=== PATIENT | female | born 1965 | race Caucasian/White ===

== ENCOUNTER 2022-09-17 10:16 | Outpatient (REF) | payer OTHER, SELFPAY ==
--- NOTE | 2022-09-17 10:22 | ECG_ITS ---
Test Reason : z82.49 Blood Pressure : / mmHG Vent. Rate : 063 BPM Atrial Rate : 063 BPM P-R Int : 156 ms QRS Dur : 088 ms QT Int : 440 ms P-R-T Axes : 064 006 050 degrees QTc Int : 450 ms Normal sinus rhythm RSR' or QR pattern in V1 suggests right ventricular conduction delay Nonspecific T wave abnormality Anterior leads Abnormal ECG No previous ECGs available Referred By: Gabriella Kaba Electronically Signed By:GI HENRIQUEZ MD
[2022-09-17 12:09] LABS: Alanine Aminotransferase 13 U/L (0-31); Albumin Level 4.4 g/dL (3.5-5.0); Alkaline Phosphatase 87 U/L (39-117); Anion Gap 17 (12-20); Aspartate Amino Transferase 17 U/L (5-31); Bilirubin Total 0.8 mg/dL (0.0-1.0); Blood Urea Nitrogen 15 mg/dL (9-16); Calcium 9.8 mg/dL (8.4-10.2); Carbon Dioxide 27 mmol/L (22-29); Chloride 103 mmol/L (96-108); Cholesterol 214 mg/dL; Estimated Glomerular Filt Rate > 60; Glucose Fasting 108 mg/dL (60-99); HDL Cholesterol 87 mg/dL; LDL Cholesterol Calculated 106 mg/dl; Potassium 4.3 mmol/L (3.3-5.1); Sodium 143 mmol/L (135-145); Total Protein 7.6 g/dL (6.5-8.0); Triglycerides 105 mg/dL
== END 2022-09-17 10:17 | disposition home or self-care (01) ==
LOC: HO.LAB 10:16
PROVIDERS: PCP Internal Medicine; Visit Provider Internal Medicine
DX: R94.31 Abnormal electrocardiogram [ECG] [EKG] (principal); Z82.49 Family history of ischemic heart disease and other diseases of the circulatory system
CPT/HCPCS: 36415; 80053; 80061; 93005

== ENCOUNTER 2022-10-03 15:00 | Outpatient (REF) | payer OTHER, SELFPAY ==
--- NOTE | ~2022-10-03 | MM_ITS ---
EXAMINATION: MM SCREENING DIGITAL BREAST TOMOSYNTHESIS, BILATERAL CLINICAL INFORMATION: Screening. Asymptomatic. Family history breast cancer, mother. Aspiration subareolar left breast abscess 07/01/2020. COMPARISON: Outside mammography 06/20/2020, 10/30/2019 ([facility]); outside left breast ultrasound 06/20/2020 and left breast ultrasound-guided aspiration 07/01/2020 ([facility]). TECHNIQUE: Digital breast tomosynthesis is performed in both the craniocaudal and mediolateral oblique views along with computer-aided detection (CAD). Synthesized 2D images are generated from the tomosynthesis. FINDINGS: The breasts are heterogeneously dense, which may obscure small masses (ACR BI-RADS breast composition Category c). There are no significant masses, abnormal calcifications, or other abnormalities. There is no architectural abnormality or developing density. The oval mass/abscess anterior left breast noted on outside imaging is no longer demonstrated. The skin contours are smooth. No skin thickening or coarsening of the Renard's ligaments. The axilla are unremarkable. MM/MM tomosynthesis screening BI IMPRESSION: No mammographic evidence of malignancy. ASSESSMENT: BI-RADS 2: Benign RECOMMENDATION: Routine annual mammography screening. This patient's information was entered into a reminder system with a target due date for their next mammogram.
== END 2022-10-03 15:01 | disposition home or self-care (01) ==
LOC: HO.MAMMO 15:00
PROVIDERS: PCP Internal Medicine; Visit Provider Internal Medicine
DX: Z12.31 Encounter for screening mammogram for malignant neoplasm of breast (principal)
CPT/HCPCS: 77063; 77067

== ENCOUNTER 2022-12-19 10:31 | Outpatient (REF) | payer OTHER, SELFPAY ==
[2022-12-22 03:18] LABS: HPV mRNA E6/E7 rflx Not Detected (Not Detected)
== END 2022-12-19 10:32 | disposition home or self-care (01) ==
LOC: HO.LNP 10:31
PROVIDERS: PCP Internal Medicine; Visit Provider Advanced Practice Midwife
DX: Z01.419 Encounter for gynecological examination (general) (routine) without abnormal findings (principal); B00.9 Herpesviral infection, unspecified; Z80.3 Family history of malignant neoplasm of breast
CPT/HCPCS: 87624; 88142

== ENCOUNTER 2023-04-26 11:20 | Outpatient (REF) | payer OTHER, SELFPAY ==
[2023-05-01 07:34] LABS: Antibody to SS-A Antigen <1.0 NEG AI (<1.0 NEG); Antibody to SS-B Antigen <1.0 NEG AI (<1.0 NEG)
== END 2023-04-26 11:21 | disposition home or self-care (01) ==
LOC: HO.LAB 11:20
PROVIDERS: PCP Internal Medicine; Visit Provider Internal Medicine
DX: R68.2 Dry mouth, unspecified (principal); R07.2 Precordial pain
CPT/HCPCS: 36415; 86235

== ENCOUNTER 2023-10-23 11:03 | Outpatient (REF) | payer OTHER, SELFPAY ==
--- NOTE | ~2023-10-23 | XR_ITS ---
EXAMINATION: XR FINGER, RIGHT CLINICAL INFORMATION: Pain COMPARISON: None available. TECHNIQUE: Three views of the right small finger. FINDINGS: Mild to moderate multi joint arthritic changes greatest at the fifth distal interphalangeal joint. Punctate 1 mm ossific focus along the dorsal margin of the fifth distal interphalangeal joints which may reflect a periarticular osteophyte though ossific fracture fragment not excluded. Correlation with point tenderness. Mild soft tissue prominence along the fifth distal interphalangeal joint. XR/XR finger RT min 2V IMPRESSION: 1. Mild to moderate multi joint arthritic changes greatest at the fifth distal interphalangeal joint. 2. Punctate 1 mm ossific focus along the dorsal margin of the fifth distal interphalangeal joint which may reflect a periarticular osteophyte though ossific fracture fragment not excluded. Correlation with point tenderness. 3. Mild soft tissue prominence along the fifth distal interphalangeal joint.
== END 2023-10-23 11:04 | disposition home or self-care (01) ==
LOC: HO.XRAY 11:03
PROVIDERS: PCP Internal Medicine; Visit Provider Internal Medicine
DX: M79.644 Pain in right finger(s) (principal)
CPT/HCPCS: 73140

== ENCOUNTER 2024-01-23 10:53 | Outpatient (REF) | payer OTHER, SELFPAY | END 2024-01-23 10:54 | disposition home or self-care (01) | LOC: HO.MAMMO 10:53 | PROVIDERS: PCP Internal Medicine; Visit Provider Internal Medicine | DX: Z12.31 Encounter for screening mammogram for malignant neoplasm of breast (principal) | CPT/HCPCS: 77063; 77067 ==

== ENCOUNTER → 2024-01-23 11:15 | Outpatient (BNV) | payer OTHER, SELFPAY | PROVIDERS: PCP Internal Medicine; Visit Provider Radiology Diagnostic Radiology | DX: Z12.31 Encounter for screening mammogram for malignant neoplasm of breast (principal) | CPT/HCPCS: 77063; 77067 ==

== ENCOUNTER 2024-01-23 12:36 | Outpatient (AMB) | payer OTHER, SELFPAY ==
[2024-01-23 12:39] VITALS: BP 112/70; BMI 24.5
--- NOTE | 2024-01-23 12:39 | MHC.PC.OV ---
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 Accompanied by: Self / Same As Patient Allergies No Known Allergies Allergy (Verified 01/23/24 12:45) Medication List - Last Reconciled 01/23/24 by Gabriella Kaba MD acyclovir 800 mg PO DAILY 90 days Tobacco use date assessed: 01/23/24 Dental Screening Dental Screen Date: 01/23/24 Did you have a dental visit in the last 12 months?: Yes Did you have a dental problem in the last 6 months where you did not have access to dental care?: No Was dental information given to patient?: Patient has dentist HPI HPI Comments History of Present Illness Details This is a 58-year-old female that comes for her physical exam. Mammogram done today. Cologuard done 2021. Pap smear done 2022. Complains of onychomycosis. Also has some bilateral hearing loss and would like a hearing test. PFSH Surgical History Hx of tubal ligation Family History Mother Hypercholesteremia History of breast cancer Father Dementia Brother Stroke Diabetes mellitus Social History Housing: Apartment Alcohol intake: current Alcohol intake frequency: a few times a week Alcohol type: beer and hard liquor Patient Tobacco Use Status: Former Tobacco user Tobacco use type: Cigarette e-Cigarette/Vaping Use: Never Used Second Hand Smoke Exposure: No service: No Current occupational status: employed Current occupational exposures/hazards: No Sexual orientation: Straight/Heterosexual Gender identity: Female Cognitive needs: No Hearing needs: No Vision needs: Yes Questionnaire PHQ-9 Over the last 2 weeks, how often have you been bothered by any of the following problems? 1. Little interest or pleasure in doing things: not at all 2. Feeling down, depressed, or hopeless: not at all 3. Trouble falling or staying asleep, or sleeping too much: not at all 4. Feeling tired or having little energy: not at all 5. Poor appetite or overeating: not at all 6. Feeling bad about yourself - or that you are a failure or have let yourself or your family down: not at all 7. Trouble concentrating on things, such as reading the newspaper or watching television: not at all 8. Moving or speaking so slowly that other people could have noticed. Or the opposite - being so fidgety or restless that you have been moving around a lot more than usual: not at all 9. Thoughts that you would be better off or of hurting yourself in some way: not at all Total score: 0 Depression Screening Interpretation: Negative Depression Screening Done: Yes 95504 - PHQ-9 Billing: Yes Source: Developed by Drs. Carlos Flaherty, Mckayla Greenwood, Chandra Yanez and colleagues, with an educational nicole from [employer]. Thrive Questionnaire Date Thrive assessed: 01/23/24 I am a: Patient What is your living situation today?: I have a steady place to live Within the past 12 months, did the food you bought not last and you didn't have the money to get more?: Never true Within the past 12 months, did you worry whether your food would run out before you got money to buy more?: Never true Do you have trouble paying for medicines?: No Do you have trouble getting transportation to medical appointments?: No Do you have trouble paying your heating and electricity bill?: No Do you have trouble taking care of your child, family member or friend?: No Do you have trouble with day-to-day activities such as bathing, preparing meals, shopping, managing finances, etc.?: No Are you currently unemployed and looking for a job?: No Are you interested in more education?: No Please select the resources that you would like help with: None Currently or been in a relationship where the following occur: no concerns reported THRIVE Score: 0 AUDIT C Alcohol Use Questionnaire (AUDIT-C) 1. How often do you have a drink containing alcohol?: 2-3 times a week 2. How many drinks containing alcohol do you have on a typical day when you are drinking?: 1 or 2 3. How often do you have six or more drinks on one occasion?: Never Total Score: 3 Score Reviewed/Action Taken: Yes ARUNA-7 AMB Questionnaire ARUAN-7 Date ARUNA - 7 assessed: 01/23/24 Feeling nervous, anxious, or on edge: 1 = Several days Not being able to stop or control worryin = Not at all Worrying too much about different things: 0 = Not at all Trouble relaxin = Not at all Being so restless that it is hard to sit still: 0 = Not at all Becoming easily annoyed or irritable: 0 = Not at all Feeling afraid as if something awful might happen: 0 = Not at all Total ARUNA-7 score (0-4 normal; 5-9 mild; 10-14 moderate; 15-21 severe): 1 Source: Developed by Drs. Carlos Flaherty, Mckayla Greenwood, Chandra Yanez and colleagues, with an educational nicole from [employer]. ARUNA-7 Assessment Billing ARUNA-7 Assessment Tool: ARUNA-7 Assessment 58746 Review of Systems Const All systems reviewed & are unremarkable except as noted in HPI and below Eyes Reports no additional complaints, Denies change in vision and Denies other visual disturbances Card Denies chest pain at rest, Denies chest pain with activity, Denies edema, Denies irregular heart rhythm, Denies claudication, Denies dyspnea, Denies dyspnea on exertion, Denies orthopnea, Denies paroxysmal nocturnal dyspnea and Denies slow heart rate Resp Denies cough, Denies dyspnea and Denies dyspnea on exertion GI Denies abdominal pain, Denies change in bowel habits, Denies excessive flatus, Denies nausea and Denies vomiting Denies urinary incontinence, Denies urinary hesitancy and Denies urinary urgency Musc Denies abnormal gait, Denies atrophy, Denies deformity and Denies limited range of motion Skin/Breast Denies bleeding lesions, Denies changing lesions and Denies rash Neuro Denies abnormal gait, Denies behavioral changes, Denies confusion and Denies lack of coordination Psych Denies behavioral changes and Denies confusion Physical exam (Primary Care) Vital Signs: Last Vital Signs BP 112/70 01/23/24 12:39 BMI result Body Mass Index 24.5 Tobacco/Smoking Status: Tobacco use Status Tobacco use date assessed 01/23/24 01/23/24 12:44 Patient Tobacco Use Status Former Tobacco user 01/23/24 12:44 Tobacco use type Cigarette 01/23/24 12:44 e-Cigarette/Vaping Use Never Used 01/23/24 12:44 PHQ-9: PHQ-9 Score PHQ-9: Total score 0 01/23/24 12:49 Depression Screening Interpretation: Negative Thrive Assessment: Date of Thrive Assessment Date Thrive assessed 01/23/24 01/23/24 12:44 Currently or been in a relationship where the following occur: no concerns reported Const General: No confusion Orientation/consciousness: patient oriented x3 and No confusion HENMT Head: Yes normal to inspection, Yes normocephalic and Yes atraumatic Ears: external ears normal Eyes General: appearance normal, both eyes and all related structures Eyelids: Yes eyelids normal Conjunctivae: conjunctivae normal Neck Neck: Yes normal visual inspection and Yes supple Resp Effort & Inspection: normal respiratory effort Auscultation: clear to auscultation bilaterally Cardio Jugular venous distension: no JVD Rate: regular rate Rhythm: regular rhythm Heart sounds: S1 normal heart sound present and S2 normal heart sound present GI Inspection: Yes normal to inspection Palpation (GI): Soft to palpation and nontender Auscultation: normal bowel sounds Skin General skin exam: no rashes or lesions noted Neuro General: patient oriented x3, no focal motor deficits and No confusion Extrem General: Yes full ROM Psych Appearance: grossly normal Assessment and Plan Assessment & Plan (1) Physical exam: Code(s): Z00.00 - Encounter for general adult medical examination without abnormal findings Plan: Repeat in a year. Orders: Orders Lipid Panel Today E78.5 - Hyperlipidemia, unspecified Comprehensive [place]. Panel Fast Today Z00.00 - Encounter for general adult medical examination without abnormal findings Referrals Speech and Hearing Referral H91.90 - Unspecified hearing loss, unspecified ear Coding Level of Care Code Est Pt Prev Care 40-64y(00105) Diagnoses Physical exam Z00.00 Additional Codes ARUNA-7 Assessment Billing - ARUNA-7 Assessment Tool: ARUNA-7 Assessment [id number] ([id number]) Time Spent (min) 31
== END 2024-01-23 12:58 | disposition home or self-care (01) ==
PROVIDERS: Visit Provider Internal Medicine
DX: Z00.00 Encounter for general adult medical examination without abnormal findings (principal)
CPT/HCPCS: 99396

== ENCOUNTER 2024-02-14 13:39 | Outpatient (REF) | payer OTHER, SELFPAY ==
[2024-02-14 15:02] LABS: Alanine Aminotransferase 16 U/L (0-31); Alkaline Phosphatase 83 U/L (39-117); Anion Gap 12 (12-20); Aspartate Amino Transferase 19 U/L (5-31); Bilirubin Total 0.4 mg/dL (0.0-1.0); Blood Urea Nitrogen 15 mg/dL (9-16); Calcium 9.5 mg/dL (8.4-10.2); Carbon Dioxide 26 mmol/L (22-29); Chloride 107 mmol/L (96-108); Cholesterol 194 mg/dL (<200); Estimated Glomerular Filt Rate > 60; Glucose Fasting 115 mg/dL (60-99); HDL Cholesterol 82 mg/dL (>40); LDL Cholesterol Calculated 95 mg/dL (<100); Potassium 3.9 mmol/L (3.3-5.1); Sodium 141 mmol/L (135-145); Total Protein 7.1 g/dL (6.5-8.0); Triglycerides 85 mg/dL (<150)
== END 2024-02-14 13:40 | disposition home or self-care (01) ==
LOC: HO.LAB 13:39
PROVIDERS: PCP Internal Medicine; Visit Provider Internal Medicine
DX: Z00.00 Encounter for general adult medical examination without abnormal findings (principal); E78.5 Hyperlipidemia, unspecified
CPT/HCPCS: 36415; 80053; 80061

== ENCOUNTER 2024-05-26 13:40 | Outpatient (AMB) | payer OTHER, SELFPAY ==
[2024-05-26 13:51] VITALS: BP 104/68; BMI 24.6
--- NOTE | 2024-05-26 13:51 | MHC.PC.OV ---
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 She said that it is painful and itchy. She was in a concert in the ground the day that the rash started. Has history of herpes zoster in the past. No fever or night sweats. No other complaint. PFSH Surgical History Hx of tubal ligation Family History Mother Hypercholesteremia History of breast cancer Father Dementia Brother Stroke Diabetes mellitus Social History Housing: Apartment Alcohol intake: current Alcohol intake frequency: a few times a week Alcohol type: beer and hard liquor Patient Tobacco Use Status: Former Tobacco user Tobacco use type: Cigarette e-Cigarette/Vaping Use: Never Used Second Hand Smoke Exposure: No service: No Current occupational status: employed Current occupational exposures/hazards: No Sexual orientation: Straight/Heterosexual Gender identity: Female Cognitive needs: No Hearing needs: No Vision needs: Yes Questionnaire Thrive Questionnaire Date Thrive assessed: 01/23/24 ARUNA-7 AMB Questionnaire ARUNA-7 Date ARUNA - 7 assessed: 01/23/24 Source: Developed by Drs. Carlos Flaherty, Mckayla Greenwood, Chandra Yanez and colleagues, with an educational nicole from [employer]. Review of Systems Skin/Breast Reports pruritus and Reports rash Physical exam (Primary Care) Vital Signs: Last Vital Signs BP 104/68 05/26/24 13:51 BMI result Body Mass Index 24.6 Tobacco/Smoking Status: Tobacco use Status Tobacco use date assessed 01/23/24 05/26/24 13:55 Patient Tobacco Use Status Former Tobacco user 05/26/24 13:55 Tobacco use type Cigarette 05/26/24 13:55 e-Cigarette/Vaping Use Never Used 05/26/24 13:55 Thrive Assessment: Date of Thrive Assessment Date Thrive assessed 01/23/24 05/26/24 13:55 Skin Rashes: rashes noted vesicles right upper arm Assessment and Plan Assessment & Plan (1) Rash: Code(s): R21 - Rash and other nonspecific skin eruption Plan: Start hydrocortisone cream. Medications: New valacyclovir 1,000 mg PO Q8H 21 tabs 0RF 7 days hydrocortisone 1% (Anti-Itch (hydrocortisone)) 1 appl topical TID PRN 28.4 grams 1RF skin irritation 30 days Coding Level of Care Code Est Pt Level 3 (93770) Complex EM visit Add On G2211 Diagnoses Rash R21 Time Spent (min) 18
== END 2024-05-26 14:23 | disposition home or self-care (01) ==
PROVIDERS: PCP Internal Medicine; Visit Provider Internal Medicine
DX: R21 Rash and other nonspecific skin eruption (principal)
CPT/HCPCS: 99213; G2211

== ENCOUNTER 2024-06-30 13:07 | Outpatient (REF) | payer OTHER, SELFPAY ==
[2024-06-30 14:34] LABS: Appearance Urine Clear; Color Urine Yellow; Glucose Urine UA Negative (Negative); Leukocyte Esterase Urine Moderate (2+) (Negative); Nitrite Urine Negative (Negative); PH 5.5 (5.0-9.0); UMIC TRIGGER UACC YES; Urine Blood Negative (Negative); Urine Ketones Negative (Negative); Urine Protein Negative (Neg-Trace)
[2024-06-30 14:36] LABS: Bacteria Urine 1+ (None Seen); Hyaline Casts Urine 0-2 /LPF (0-2); RBC Urine 0-2 /HPF (0-2); UACC Culture Trigger YES; WBC Urine >50 /HPF (0-5)
== END 2024-06-30 13:08 | disposition home or self-care (01) ==
LOC: HO.LAB 13:07
PROVIDERS: PCP Internal Medicine; Visit Provider Internal Medicine
DX: R35.0 Frequency of micturition (principal)
CPT/HCPCS: 81001; 87086; 87088; 87186

== ENCOUNTER → 2024-09-18 10:29 | Outpatient (REF) | payer OTHER, SELFPAY ==
--- NOTE | 2024-09-18 10:32 | ECG_ITS ---
Test Reason : FM HX ISCHEMIA Blood Pressure : / mmHG Vent. Rate : 074 BPM Atrial Rate : 074 BPM P-R Int : 138 ms QRS Dur : 086 ms QT Int : 418 ms P-R-T Axes : 062 008 063 degrees QTc Int : 463 ms Normal sinus rhythm Nonspecific ST and T wave abnormality Abnormal ECG When compared with ECG of 17-SEP-2022 10:18, No significant change was found Referred By: Gabriella Kaba Electronically Signed By:MIRI ESCOBAR
== END ==
LOC: HO.CARD 10:29
PROVIDERS: PCP Internal Medicine; Visit Provider Internal Medicine
DX: Z13.6 Encounter for screening for cardiovascular disorders (principal); Z82.49 Family history of ischemic heart disease and other diseases of the circulatory system
CPT/HCPCS: 93005

== ENCOUNTER → 2024-09-18 10:32 | Outpatient (BNV) | payer OTHER, SELFPAY | PROVIDERS: PCP Internal Medicine; Visit Provider Internal Medicine | DX: R94.31 Abnormal electrocardiogram [ECG] [EKG] (principal) | CPT/HCPCS: 93010 ==

== ENCOUNTER 2024-12-21 11:24 | Outpatient (REF) | payer BC, SELFPAY ==
[2024-12-30 20:39] LABS: Schistosoma IgG Antibody <1.00
== END 2024-12-21 11:25 | disposition home or self-care (01) ==
LOC: HO.LAB 11:24
PROVIDERS: PCP Internal Medicine; Visit Provider Internal Medicine
DX: R21 Rash and other nonspecific skin eruption (principal)
CPT/HCPCS: 36415; 86682; 96127

== ENCOUNTER 2024-12-21 12:54 | Outpatient (AMB) | payer OTHER, SELFPAY ==
--- NOTE | 2024-12-21 12:58 | A.OFFPC_ITS ---
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 Accompanied by: Self / Same As Patient Allergies No Known Allergies Allergy (Verified 12/21/24 13:07) Medication List - Last Reconciled 12/21/24 by Gabriella Kaba MD acyclovir 800 mg PO DAILY Tobacco use date assessed: 12/21/24 Dental Screening Dental Screen Date: 12/21/24 Did you have a dental visit in the last 12 months?: Yes Did you have a dental problem in the last 6 months where you did not have access to dental care?: No Was dental information given to patient?: Patient has dentist HPI HPI Comments History of Present Illness Details The patient is a 59-year-old female presenting with a rash. The rash began presenting with sunburn-like symptoms shortly after arriving in [facility] this month. Initially, both the patient and her experienced symptoms after walking along the ocean and fresh water; however, the patient's symptoms were less severe compared to her , who developed blisters both on toes and beneath feet and has progressed up to the knees. The patient describes her rash as red, slightly scaly, dry, and mildly itchy with bumps but without blisters. The rash appears primarily on her arms and has spread to her legs. Attempts to manage the rash with cool ice gel, under the presumption of sunburn, were ineffective. The rash has traveled over the patient's body instead of subsiding, stirring concern over possible parasitic or environmental causes. No nausea, vomiting, diarrhea, fever, or major systemic involvements are reported aside from a slight cough. [facility] Surgical History Hx of tubal ligation Family History Mother Hypercholesteremia History of breast cancer Father Dementia Brother Stroke Diabetes mellitus Social History Housing: Apartment Alcohol intake: current Alcohol intake frequency: a few times a week Alcohol type: beer and hard liquor Patient Tobacco Use Status: Former Tobacco user Tobacco use type: Cigarette e-Cigarette/Vaping Use: Never Used Second Hand Smoke Exposure: No service: No Current occupational status: employed Current occupational exposures/hazards: No Sexual orientation: Straight/Heterosexual Gender identity: Female Cognitive needs: No Hearing needs: No Vision needs: Yes Questionnaire PHQ-9 Over the last 2 weeks, how often have you been bothered by any of the following problems? 1. Little interest or pleasure in doing things: not at all 2. Feeling down, depressed, or hopeless: not at all 3. Trouble falling or staying asleep, or sleeping too much: not at all 4. Feeling tired or having little energy: not at all 5. Poor appetite or overeating: not at all 6. Feeling bad about yourself - or that you are a failure or have let yourself or your family down: not at all 7. Trouble concentrating on things, such as reading the newspaper or watching television: not at all 8. Moving or speaking so slowly that other people could have noticed. Or the opposite - being so fidgety or restless that you have been moving around a lot more than usual: not at all 9. Thoughts that you would be better off or of hurting yourself in some way: not at all Total score: 0 Depression Screening Interpretation: Negative Depression Screening Done: Yes 53410 - PHQ-9 Billing: Yes Source: Developed by Drs. Carlos Flaherty, Mckayla Greenwood, Chandra Yanez and colleagues, with an educational nicole from [employer]. Thrive Questionnaire Date Thrive assessed: 12/21/24 I am a: Patient What is your living situation today?: I have a steady place to live Within the past 12 months, did the food you bought not last and you didn't have the money to get more?: Never true Within the past 12 months, did you worry whether your food would run out before you got money to buy more?: Never true Do you have trouble paying for medicines?: No Do you have trouble getting transportation to medical appointments?: No Do you have trouble paying your heating and electricity bill?: No Do you have trouble taking care of your child, family member or friend?: No Do you have trouble with day-to-day activities such as bathing, preparing meals, shopping, managing finances, etc.?: No Are you currently unemployed and looking for a job?: No Are you interested in more education?: No Please select the resources that you would like help with: None Currently or been in a relationship where the following occur: No concerns reported THRIVE Score: 0 AUDIT C Alcohol Use Questionnaire (AUDIT-C) 1. How often do you have a drink containing alcohol?: 2-3 times a week 2. How many drinks containing alcohol do you have on a typical day when you are drinking?: 1 or 2 3. How often do you have six or more drinks on one occasion?: Weekly Total Score: 6 ARUNA-7 AMB Questionnaire ARUNA-7 Date ARUNA - 7 assessed: 12/21/24 Feeling nervous, anxious, or on edge: 0 = Not at all Not being able to stop or control worryin = Not at all Worrying too much about different things: 0 = Not at all Trouble relaxin = Not at all Being so restless that it is hard to sit still: 0 = Not at all Becoming easily annoyed or irritable: 0 = Not at all Feeling afraid as if something awful might happen: 0 = Not at all Total ARUNA-7 score (0-4 normal; 5-9 mild; 10-14 moderate; 15-21 severe): 0 Source: Developed by Drs. Carlos Flaherty, Mckayla Greenwood, Chandra Yanez and colleagues, with an educational nicole from [employer]. ARUNA-7 Assessment Billing ARUNA-7 Assessment Tool: ARUNA-7 Assessment 52733 Review of Systems Const All systems reviewed & are unremarkable except as noted in HPI and below Card Denies chest pain at rest, Denies chest pain with activity, Denies edema, Denies irregular heart rhythm, Denies claudication, Denies dyspnea, Denies dyspnea on exertion, Denies orthopnea, Denies paroxysmal nocturnal dyspnea and Denies slow heart rate Resp Denies cough, Denies dyspnea and Denies dyspnea on exertion GI Denies abdominal pain, Denies change in bowel habits, Denies excessive flatus, Denies nausea and Denies vomiting Skin/Breast Reports pruritus and Reports rash Neuro Denies behavioral changes and Denies lack of coordination Psych Denies behavioral changes Physical exam (Primary Care) Vital Signs: Last Vital Signs BP 130/82 12/21/24 12:59 BMI result Body Mass Index 25.0 Tobacco/Smoking Status: Tobacco use Status Tobacco use date assessed 12/21/24 12/21/24 13:05 Patient Tobacco Use Status Former Tobacco user 12/21/24 13:05 Tobacco use type Cigarette 12/21/24 13:05 e-Cigarette/Vaping Use Never Used 12/21/24 13:05 PHQ-9: PHQ-9 Score PHQ-9: Total score 0 12/21/24 13:09 Depression Screening Interpretation: Negative Thrive Assessment: Date of Thrive Assessment Date Thrive assessed 12/21/24 12/21/24 13:05 Currently or been in a relationship where the following occur: No concerns reported Resp Effort & Inspection: normal respiratory effort Auscultation: clear to auscultation bilaterally Cardio Jugular venous distension: no JVD Rate: regular rate Rhythm: regular rhythm Heart sounds: S1 normal heart sound present and S2 normal heart sound present Skin Rashes: rashes noted Extrem General: Yes full ROM Coding Level of Care Code Est Pt Level 3 (74042) Diagnoses Rash R21 Additional Codes ARUNA-7 Assessment Billing - ARUNA-7 Assessment Tool: ARNUA-7 Assessment 52824 ([id number]) PHQ-9 - 94701 - PHQ-9 Billing: Yes ([id number]) Time Spent (min) 19 Assessment & Plan Assessment & Plan (1) Rash: Code(s): R21 - Rash and other nonspecific skin eruption Category: Medical Plan - Initiate oral prednisone in a tapered dosing pack to address inflammatory components of the rash. - Prescribe hypermectin as treatment for possible parasitic infection such as Schistosoma. - Continue current episodic acyclovir regimen. - Consider referral to dermatology for specialized evaluation and possible skin scraping. Patient was informed and verbally consented to the use of an ambient scribe for clinic note documentation during this visit. I discussed with the patient the differential diagnosis which includes parasitic infection and allergic reaction, considering her recent travel history. Given her symptoms and exposures, I explained the rationale for initiating prednisone to control inflammation and suggested hypermectin could address potential parasitic causes. We also talked about the pending lab results, which will provide further guidance. I will provide a referral to dermatology as requested for additional examination and potential skin scraping. Continuing her current antiviral regimen was reaffirmed as a prudent approach. We touched upon the po ssibility of environmental factors contributing to the rash and addressed her concern that it may be caused by toxic seafood or exposure to jellyfish or seaweed. Orders: Orders Lipid Panel Today E78.5 - Hyperlipidemia, unspecified Complete Blood Count Auto Diff Today R21 - Rash and other nonspecific skin eruption Comprehensive Fleming. Panel Fast Today R21 - Rash and other nonspecific skin eruption Referrals 2 Dermatology Referral R21 - Rash and other nonspecific skin eruption Medications: New prednisone Take 4 tabs for 2 days, then 3 tabs for 2 days, then 2 tabs for 2 days, then 1 tab for 2 days 10 mg PO DIRECTED 8 days 20 tabs 0RF praziquantel 600 mg PO TID 1 day 3 tabs 0RF prednisone Take 4 tabs for 2 days, then 3 tabs for 2 days, then 2 tabs for 2 days, then 1 tab for 2 days 10 mg PO DIRECTED 8 days 20 tabs 0RF praziquantel 600 mg PO TID 1 day 3 tabs 0RF Patient Instructions: - Follow prednisone dosages as prescribed. - Begin hypermectin treatment as directed. - Monitor rash symptoms and report any worsening conditions. - Await results of pending blood work. - Follow-up with bowling teacher as advised. - Maintain standard herpes medication regimen. - Avoid further environmental exposure that might exacerbate the condition.
[2024-12-21 12:59] VITALS: BP 130/82; BMI 25.0
== END 2024-12-21 13:31 | disposition home or self-care (01) ==
PROVIDERS: PCP Internal Medicine; Visit Provider Internal Medicine
DX: R21 Rash and other nonspecific skin eruption (principal)

== ENCOUNTER 2025-01-26 14:18 | Outpatient (REF) | payer BC, SELFPAY | END 2025-01-26 14:19 | disposition home or self-care (01) | LOC: HO.LAB 14:18 | PROVIDERS: PCP Internal Medicine; Visit Provider Internal Medicine | DX: Z00.00 Encounter for general adult medical examination without abnormal findings (principal) | CPT/HCPCS: 96127 ==

== ENCOUNTER 2025-01-26 14:18 | Outpatient (AMB) | payer BC, SELFPAY ==
--- NOTE | 2025-01-26 14:23 | A.OFFPC_ITS ---
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 Required: No Accompanied by: Self / Same As Patient Allergies No Known Allergies Allergy (Verified 01/26/25 14:58) Medication List - Last Reconciled 01/26/25 by Gabriella Kaba MD acyclovir 800 mg PO DAILY Tobacco use date assessed: 12/21/24 Dental Screening Dental Screen Date: 01/26/25 Did you have a dental visit in the last 12 months?: Yes Did you have a dental problem in the last 6 months where you did not have access to dental care?: No Was dental information given to patient?: Patient has dentist HPI HPI Comments History of Present Illness Details The patient is a 59-year-old female presenting for her physical exam. She had a recent onset of central chest pain. The symptoms began after her last visit, occurring while she was standing at her station at work. The pain is described as being in the center of the chest, and the patient acknowledges it comes without any inciting activity, as it developed while she was at rest. She describes the pain as significant enough to cause concern about falling, leading her to sit down to prevent this. The episodes of pain last about five minutes and resolve spontaneously. The patient relates that the pain did not occur following eating, as she had not eaten that morning, and it is clearly not associated with any specific exertion or stress. She expresses frustration at not understanding the cause, although ruling out heart involvement is a priority for her due to her brother's passing and family history. An EKG was performed previously, showing normal results. Dr. Dickinson suggested that it might be sternum pain, possibly arthritis-type discomfort, but there is no tenderness to palpation. A recent discussion comprised possible causes such as Tietze syndrome, given the character of pain and its location. 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 She has no known allergies and currently uses acyclovir 800 mg once daily. Her past surgical history is significant for a tubal ligation. Family history reveals her father has dementia and her mother has elevated cholesterol, a history of breast cancer, and refuses a pacemaker for a cardiac conduction disorder. The patient's blood pressure was recently noted to be 112/78 mmHg, demonstrating excellent control with present therapies. There are no known drug allergies. - Tdap vaccination received in 2019; nex t due in 2029 - Cologuard screening was completed in and due this year - Mammogram scheduled for this Saturday; l ast mammogram was in 2023 - Pap smear performed in 2022 was normal with HPV negative; next due in five years - Discussed alcohol use keeping within g uidelines; typically six drinks or less per week PFSH Surgical History Hx of tubal ligation Family History Mother Hypercholesteremia History of breast cancer Father Dementia Brother Stroke Diabetes mellitus Social History Housing: Apartment Alcohol intake: current Alcohol intake frequency: a few times a week Alcohol type: beer and hard liquor Patient Tobacco Use Status: Former Tobacco user Tobacco use type: Cigarette e-Cigarette/Vaping Use: Never Used Second Hand Smoke Exposure: No service: No Current occupational status: employed Current occupational exposures/hazards: No Sexual orientation: Straight/Heterosexual Gender identity: Female Cognitive needs: No Hearing needs: No Vision needs: Yes Questionnaire PHQ-9 Over the last 2 weeks, how often have you been bothered by any of the following problems? 1. Little interest or pleasure in doing things: not at all 2. Feeling down, depressed, or hopeless: not at all 3. Trouble falling or staying asleep, or sleeping too much: not at all 4. Feeling tired or having little energy: not at all 5. Poor appetite or overeating: not at all 6. Feeling bad about yourself - or that you are a failure or have let yourself or your family down: not at all 7. Trouble concentrating on things, such as reading the newspaper or watching television: not at all 8. Moving or speaking so slowly that other people could have noticed. Or the op posite - being so fidgety or restless that you have been moving around a lot more than usual: not at all 9. Thoughts that you would be better off or of hurting yourself in some way: not at all Total score: 0 Depression Screening Interpretation: Negative Depression Screening Done: Yes 42032 - PHQ-9 Billing: Yes Source: Developed by Drs. Carlos Flaherty, Mckayla Greenwood, Chandra Yanez and colleagues, with an educational nicole from [employer]. Thrive Questionnaire Date Thrive assessed: 01/19/25 I am a: Patient What is your living situation today?: I have a steady place to live Within the past 12 months, did the food you bought not last and you didn't have the money to get more?: Never true Within the past 12 months, did you worry whether your food would run out before you got money to buy more?: Never true Do you have trouble paying for medicines?: No Do you have trouble getting transportation to medical appointments?: No Do you have trouble paying your heating and electricity bill?: No Do you have trouble taking care of your child, family member or friend?: No Do you have trouble with day-to-day activities such as bathing, preparing meals, shopping, managing finances, etc.?: No Are you currently unemployed and looking for a job?: No Are you interested in more education?: No Please select the resources that you would like help with: None Currently or been in a relationship where the following occur: No concerns reported THRIVE Score: 0 AUDIT C Alcohol Use Questionnaire (AUDIT-C) 1. How often do you have a drink containing alcohol?: 2-3 times a week 2. How many drinks containing alcohol do you have on a typical day when you are drinking?: 1 or 2 3. How often do you have six or more drinks on one occasion?: Never Total Score: 3 ARUNA-7 AMB Questionnaire ARUNA-7 Date ARUNA - 7 assessed: 12/21/24 Feeling nervous, anxious, or on edge: 0 = Not at all Not being able to stop or control worryin = Not at all Worrying too much about different things: 0 = Not at all Trouble relaxin = Not at all Being so restless that it is hard to sit still: 0 = Not at all Becoming easily annoyed or irritable: 0 = Not at all Feeling afraid as if something awful might happen: 0 = Not at all Total ARUNA-7 score (0-4 normal; 5-9 mild; 10-14 moderate; 15-21 severe): 0 Source: Developed by Drs. Carlos Flaherty, Mckayla Greenwood, Chandra Yanez and colleagues, with an educational nicole from [employer]. ARUNA-7 Assessment Billing ARUNA-7 Assessment Tool: ARUNA-7 Assessment 98745 Review of Systems Const All systems reviewed & are unremarkable except as noted in HPI and below Card Reports chest pain at rest, Denies chest pain with activity, Denies edema, Denies irregular heart rhythm, Denies claudication, Denies dyspnea, Denies dyspnea on exertion, Denies orthopnea, Denies paroxysmal nocturnal dyspnea and Denies slow heart rate Resp Denies cough, Denies dyspnea and Denies dyspnea on exertion GI Denies abdominal pain, Denies change in bowel habits, Denies excessive flatus, Denies nausea and Denies vomiting Denies urinary incontinence, Denies urinary hesitancy and Denies urinary urgency Musc Denies abnormal gait, Denies atrophy, Denies deformity and Denies limited range of motion Skin/Breast Denies bleeding lesions, Denies changing lesions and Denies rash Neuro Denies abnormal gait, Denies behavioral changes and Denies lack of coordination Psych Denies behavioral changes Physical exam (Primary Care) Vital Signs: Last Vital Signs BP 112/78 01/26/25 14:24 BMI result Body Mass Index 24.8 Tobacco/Smoking Status: Tobacco use Status Tobacco use date assessed 12/21/24 01/26/25 14:30 Patient Tobacco Use Status Former Tobacco user 01/26/25 14:30 Tobacco use type Cigarette 01/26/25 14:30 e-Cigarette/Vaping Use Never Used 01/26/25 14:30 PHQ-9: PHQ-9 Score PHQ-9: Total score 0 01/26/25 15:01 Depression Screening Interpretation: Negative Thrive Assessment: Date of Thrive Assessment Date Thrive assessed 01/19/25 01/26/25 14:30 Currently or been in a relationship where the following occur: No concerns reported HENMT Head: Yes normal to inspection, Yes normocephalic and Yes atraumatic Ears: external ears normal Eyes General: appearance normal, both eyes and all related structures Eyelids: Yes eyelids normal Conjunctivae: conjunctivae normal Neck Neck: Yes normal visual inspection and Yes supple Resp Effort & Inspection: normal respiratory effort Auscultation: clear to auscultation bilaterally Cardio Jugular venous distension: no JVD Rate: regular rate Rhythm: regular rhythm Heart sounds: S1 normal heart sound present and S2 normal heart sound present GI Inspection: Yes normal to inspection Palpation (GI): Soft to palpation and nontender Auscultation: normal bowel sounds Skin General skin exam: no rashes or lesions noted Neuro General: no focal motor deficits Extrem General: Yes full ROM Psych Appearance: grossly normal Coding Level of Care Code Est Pt Prev Care 40-64y(01165) Diagnoses Physical exam Z00.00 Additional Codes ARUNA-7 Assessment Billing - ARUNA-7 Assessment Tool: ARUNA-7 Assessment 62305 ([id number]) PHQ-9 - 76741 - PHQ-9 Billing: Yes ([id number]) Time Spent (min) 31 Assessment & Plan Assessment & Plan (1) Physical exam: Code(s): Z00.00 - Encounter for general adult medical examination without abnormal findings Category: Medical Plan - Recommend ibuprofen for possible Tietze syndrome or chest wall arthritis pain relief. - Consideration of further diagnostic evaluation with a stress test, chest X- ray, and upper GI series for more comprehensive assessment of chest pain if necessary. - Maintain current blood pressure management, continue acyclovir 800 mg daily. - Schedule mammogram as planned. - Reorder Cologuard screening for colorectal cancer. - Guided on alcohol consumption to remain within health guidelines. Patient was informed and verbally consented to the use of an ambient scribe for clinic note documentation during this visit. During the visit, I discussed the potential causes of the patient's central chest pain, including Tietze syndrome and arthritis-related issues, while also noting that the most important consideration is to rule out cardiac causes. I explained the utility of ibuprofen in symptom management and highlighted the possible need for a stress test, chest X-ray, and upper GI series if symptoms persist or enhance. I emphasized ensuring the pain is not cardiac-related due to the potential severity this poses. Additionally, I reiterated the importance of following health maintenance schedules, including cancer screenings and vaccinations. I addressed lifestyle choices and encouraged alcohol consumption w ithin recommended limits. We discussed the possibility of returning to baseline weight and improving physical activity as the seasons allow. Orders: Referrals Cologuard Test Z12.11 - Encounter for screening for malignant neoplasm of colon, Z12.12 - Encounter for screening for malignant neoplasm of rectum Patient Instructions: - Start using ibuprofen as needed to manage chest pain, but consider how it impacts symptom resolution. - Follow up with scheduled mammogram this week and Cologuard screening. - Monitor and report any changes in chest pain or related symptoms. - Continue managing blood pressure with current medications. - Note that further tests may be necessary if chest pain persists or worsens. - Maintain alcohol intake within recommended guidelines. - Follow weight loss and exercise noted guidance as feasible.
[2025-01-26 14:24] VITALS: BP 112/78; BMI 24.8
== END 2025-01-26 15:17 | disposition home or self-care (01) ==
PROVIDERS: PCP Internal Medicine; Visit Provider Internal Medicine
DX: Z00.00 Encounter for general adult medical examination without abnormal findings (principal)

== ENCOUNTER 2025-01-29 11:16 | Outpatient (REF) | payer BC, SELFPAY ==
--- NOTE | ~2025-01-29 | MM_ITS ---
EXAMINATION: MM SCREENING DIGITAL BREAST TOMOSYNTHESIS, BILATERAL CLINICAL INFORMATION: Screening. Asymptomatic. COMPARISON: Mammography: Comparison is made with available priors TECHNIQUE: Digital breast mammography with tomosynthesis is performed in both the craniocaudal and mediolateral oblique views along with computer-aided detection (CAD). FINDINGS: The breasts are heterogeneously dense, which may obscure small masses (ACR BI-RADS breast composition Category c). There are no significant masses, abnormal calcifications, or other abnormalities. MM/MM tomosynthesis screening BI IMPRESSION: No mammographic evidence of malignancy. ASSESSMENT: BI-RADS BI-RADS 1 - Negative RECOMMENDATION: Routine annual mammography screening. 1 year F/U This examination should not preclude the clinical evaluation of a suspicious palpable abnormality. This patient's information was entered into a reminder system with a target due date for their next mammogram. Electronically signed by: Joan Trotter DO 02/01/2025 05:20 PM RUTHIE
[2025-01-29 12:09] LABS: MANUAL DIFF FLAG NO
[2025-01-29 12:42] LABS: Basophils Absolute Auto 0.1 X10*3/uL (0.0-0.2); Basophils Percent Auto 1.1 % (0-2); Eosinophils Absolute Auto 0.1 X10*3/uL (0.0-0.4); Eosinophils Percent Auto 1.3 % (0-4); Hematocrit 38.8 % (37.0-47.0); Hemoglobin 12.8 g/dl (12.0-16.0); Imm Gran Abs Auto 0.02 X10*3/uL (0.00-0.03); Imm Gran Pct Auto 0.3 % (0.0-0.4); Lymphocytes Absolute Auto 2.9 X10*3/uL (1.2-4.9); Lymphocytes Percent Auto 45.9 % (20-40); Mean Corpuscular Hemoglobin 29.1 pg (27.0-33.0); Mean Corpuscular Volume 88.2 fL (80.0-98.0); Mean Platelet Volume 10.1 fL (9.4-12.3); Monocytes Absolute Auto 0.5 X10*3/uL (0.1-1.2); Monocytes Percent Auto 7.8 % (2-11); Neutrophils Absolute Auto 2.7 x10*3/uL (2.0-8.3); Neutrophils Percent Auto 43.6 % (45-73); Platelet Count 327 X10*3/uL (160-400); Red Cell Distribution Width 12.3 % (11.0-16.0); White Blood Count 6.3 X10*3/uL (4.8-10.8)
[2025-01-29 13:19] LABS: Alanine Aminotransferase 18 U/L (0-31); Albumin Level 4.3 g/dL (3.5-5.0); Alkaline Phosphatase 82 U/L (39-117); Anion Gap 10 (12-20); Aspartate Amino Transferase 19 U/L (5-31); Bilirubin Total 0.5 mg/dL (0.0-1.0); Blood Urea Nitrogen 11 mg/dL (9-16); Calcium 9.5 mg/dL (8.4-10.2); Carbon Dioxide 28 mmol/L (22-29); Chloride 107 mmol/L (96-108); Cholesterol 204 mg/dL (<200); Estimated Glomerular Filt Rate > 60; Glucose Fasting 97 mg/dL (60-99); HDL Cholesterol 88 mg/dL (>40); LDL Cholesterol Calculated 99 mg/dL (<100); Potassium 4.1 mmol/L (3.3-5.1); Sodium 141 mmol/L (135-145); Total Protein 7.9 g/dL (6.5-8.0); Triglycerides 86 mg/dL (<150)
== END 2025-01-29 11:17 | disposition home or self-care (01) ==
LOC: HO.MAMMO 11:16
PROVIDERS: PCP Internal Medicine; Visit Provider Internal Medicine
DX: Z12.31 Encounter for screening mammogram for malignant neoplasm of breast (principal); E78.5 Hyperlipidemia, unspecified; R21 Rash and other nonspecific skin eruption
CPT/HCPCS: 36415; 77063; 77067; 80053; 80061; 85025

== ENCOUNTER → 2025-01-29 11:30 | Outpatient (BNV) | payer BC, SELFPAY | PROVIDERS: PCP Internal Medicine; Visit Provider Internal Medicine | DX: Z12.31 Encounter for screening mammogram for malignant neoplasm of breast (principal) | CPT/HCPCS: 77063; 77067 ==

== ENCOUNTER → 2025-09-21 13:18 | Outpatient (REF) | payer BC, SELFPAY ==
--- NOTE | 2025-09-21 13:21 | HM_ITS ---
* Total monitoring time 3 days. * Underlying rhythm is sinus with an average rate of 74/Min. * Rare supraventricular ectopy. * Rare ventricular ectopy. * No significant pauses or high-grade AV blocks. * No patient markers or diary events. MTDD
== END ==
LOC: HO.CARD 13:18
PROVIDERS: PCP Internal Medicine; Visit Provider Internal Medicine
DX: R00.0 Tachycardia, unspecified (principal); I49.3 Ventricular premature depolarization; R00.1 Bradycardia, unspecified
CPT/HCPCS: 93225

== ENCOUNTER → 2025-09-21 13:21 | Outpatient (BNV) | payer BC, SELFPAY | PROVIDERS: PCP Internal Medicine; Visit Provider Internal Medicine | DX: I47.10 Supraventricular tachycardia, unspecified (principal); I49.3 Ventricular premature depolarization | CPT/HCPCS: 93227 ==